=== PATIENT | male | born 1980 | race Caucasian/White ===

== ENCOUNTER 2023-04-03 08:36 | Emergency (ER) | payer OTHER ==
[~2023-04-03] VITALS: Ht 180.3 cm; Wt 81.7 kg
[~2023-04-03 08:36] MED LIST: NORCO 5-325 TA1 EACH PO
[2023-04-03 09:05] LABS: BASOPHILS 0.3 % (0-2); HEMATOCRIT 42.3 % (35.0-50.0); HEMOGLOBIN 14.6 g/dL (12.0-18.0); MCH 30.8 (27-36); MCHC 34.4 g/dl (30-36); MCV 89.6 fl (81-99); MONOCYTES 12.2 % (0-12); NEUTROPHILS 76.5 % (39-80); PLATELET COUNT 138 K/uL (140-440); RBC 4.72 M/ul (4.3-5.7); RDW 13.5 (10.5-15.0)
[2023-04-03 09:20] LABS: ALBUMIN 3.7 g/dL (3.4-5.0); ALBUMIN/GLOBULIN RATIO 0.97 (1.1-2.4); ANION GAP 18.3 (7-21); BILIRUBIN, TOTAL 0.4 ng/dL (0.2-1.0); BUN/CREATININE RATIO 8.1 (6.0-28.6); CALCIUM 8.6 mg/dL (8.5-10.1); CREATININE, SERUM 5.92 mg/dL (0.70-1.30); POTASSIUM 4.3 mmol/L (3.5-5.1); PROTEIN, TOTAL 7.5 g/dL (6.4-8.2)
[2023-04-03 10:12] LABS: BILIRUBIN, URINE NEGATIVE (negative); BLOOD/HGB, URINE SMALL (Negative); KETONE, URINE NEGATIVE (Negative); LEUK ESTERASE, URINE NEGATIVE (negative); NITRITE, URINE NEGATIVE (negative)
[2023-04-03 10:22] LABS: BACTERIA, URINE RARE /hpf (negative); CASTS, URINE GRANULAR 1+ \\lpf; COLLECTION TYPE, URINE CLEAN CATCH; CRYSTALS, URINE NONE SEEN (0-1+); EPITHELIAL CELLS, URINE 0 /lpf (0-1+); REFLEX CULTURE, URINE No (No)
[2023-04-03 11:46] VITALS: BP 162/100
== END 2023-04-03 11:45 | disposition home or self-care (01) ==
LOC: ED 08:36
PROVIDERS: Emergency Medicine
DX: B34.9 Viral infection, unspecified (principal); I12.0 Hypertensive chronic kidney disease with stage 5 chronic kidney disease or end stage renal disease; N18.6 End stage renal disease
CPT/HCPCS: 36415; 74176; 80053; 81001; 83690; 85025; 96361; 96374; 99284-25; J2405; J7030